=== PATIENT | female | born 1990 | race African-American/Black ===

== ENCOUNTER 2023-12-22 15:27 | Emergency (ER) | payer MEDICAID ==
[~2023-12-22] VITALS: Ht 165.1 cm; Wt 91.0 kg
[2023-12-22 15:29] VITALS: O2SAT 97
[2023-12-22 16:24] LABS: CHLORIDE 105 mEq/L (98-107); POTASSIUM 3.5 mEq/L (3.5-5.1); SODIUM 138 mEq/L (136-145)
[2023-12-22 16:25] LABS: CARBON DIOXIDE 26 mEq/L (21-32)
[2023-12-22 16:26] LABS: CALCIUM 9.6 mg/dL (8.7-10.4)
[2023-12-22 16:30] LABS: CREATININE 0.8 mg/dL (0.6-1.0); GLUCOSE 95 mg/dL (70-105); UREA NITROGEN BLOOD 5 mg/dL (9-23)
[2023-12-22 16:32] LABS: ACETAMINOPHEN < 2 ug/mL (10-30); ALANINE AMINOTRANSFERASE 17 IU/L (10-49); ALBUMIN 4.6 g/dL (3.2-4.8); ASPARTATE AMINOTRANSFERASE 18 IU/L (<34)
[2023-12-22 16:33] LABS: BILIRUBIN TOTAL 0.3 mg/dL (0.1-1.0)
[2023-12-22 16:46] LABS: CLARITY URINE TURBID (CLEAR); COLOR URINE ORANGE (YELLOW); GLUCOSE URINE NEGATIVE (NEGATIVE); KETONES URINE NEGATIVE (NEGATIVE); LEUKOCYTE ESTERASE URINE 1+ (NEGATIVE); NITRITE URINE NEGATIVE (NEGATIVE); OCCULT BLOOD URINE 3+ (NEGATIVE); PROTEIN URINE 1+ (NEGATIVE); SPECIFIC GRAVITY URINE 1.021 (1.005-1.030)
[2023-12-22 16:56] LABS: *AMPHETAMINES SCREEN URINE NEGATIVE (NEGATIVE); *BARBITURATES SCREEN URINE NEGATIVE (NEGATIVE); *BENZODIAZEPINES SCREEN URINE NEGATIVE (NEGATIVE); *COCAINE SCREEN URINE NEGATIVE (NEGATIVE); METHADONE URINE SCREEN NEGATIVE (NEGATIVE); OPIATES URINE SCREEN NEGATIVE (NEGATIVE)
[2023-12-22 16:57] LABS: CANNABINOID URINE SCREEN NEGATIVE (NEGATIVE); ECSTASY MDMA SCREEN URINE NEGATIVE (NEGATIVE); PHENCYCLIDINE URINE SCREEN NEGATIVE (NEGATIVE)
[2023-12-22 17:42] LABS: BACTERIA URINE 3+; RBC URINE TNTC /hpf (0-2); SQUAMOUS EPITHELIAL CELL URINE 2+ /lpf (RARE/1+)
[2023-12-22 17:51] LABS: BASOPHILS % 0.8 % (0.0-2.0); EOSINOPHILS % 0.3 % (0.0-5.0); HEMATOCRIT. 34.2 % (36.0-48.0); HEMOGLOBIN. 11.2 g/dL (12.0-16.0); LYMPHOCYTES % 29.2 % (20.0-50.0); MEAN CORPUSCULAR HEMOGLOBIN 28.1 pg (28.0-32.0); MEAN CORPUSCULAR HGB CONC 32.8 g/dL (31.0-37.0); MEAN CORPUSCULAR VOLUME 85.5 fL (81.0-99.0); MEAN PLATELET VOLUME 7.2 fl (7.4-10.4); MONOCYTES % 7.8 % (2.0-8.0); NEUTROPHILS % 61.9 % (40.0-76.0); PLATELET 528 x1000/uL (130-400); RED CELL DISTRIBUTION WIDTH 13.5 % (11.6-14.6); WHITE BLOOD COUNT 8.5 x1000/uL (4.5-11.0)
[2023-12-22 17:56] LABS: HCG SCREEN NEGATIVE
[2023-12-22] MEDS: NITROFURANTOIN 100MG M/M CAPSULE PO SCH (21:00)
[2023-12-23] MEDS: OLANZAPINE 5MG TABLET ODT PO SCH (11:11)
[2023-12-23 21:19] VITALS: TEMP 36.66960
[2023-12-24 01:40] VITALS: BP 148/89; PULSE 80; RESP 18; O2SAT 99
== END 2023-12-24 01:36 ==
LOC: ER 15:27
DX: F31.9 Bipolar disorder, unspecified (principal); R82.71 Bacteriuria; Z90.49 Acquired absence of other specified parts of digestive tract
CPT/HCPCS: 36415; 80053; 80305; 80307; 80320; 80329; 81003; 84703; 85025; 87426; 99285; G0480